=== PATIENT | female | born 1950 | race Caucasian/White ===

== ENCOUNTER 2021-05-29 09:42 | Outpatient (CLI) | payer MEDICARE, BC | END 2021-05-29 09:43 | disposition home or self-care (01) | LOC: CSHMAMMO 09:42 | PROVIDERS: ATTEND Family Medicine | DX: Z12.31 Encounter for screening mammogram for malignant neoplasm of breast (principal) | CPT/HCPCS: 77063; 77067 ==

== ENCOUNTER 2023-03-03 10:44 | Outpatient (CLI) | payer MEDICARE | END 2023-03-03 10:45 | disposition home or self-care (01) | LOC: CSHMAMMO 10:44 | PROVIDERS: ATTEND Obstetrics & Gynecology | DX: Z12.31 Encounter for screening mammogram for malignant neoplasm of breast (principal) | CPT/HCPCS: 77063; 77067 ==

== ENCOUNTER 2024-02-17 12:46 | Outpatient (CLI) | payer MEDICARE | END 2024-02-17 12:47 | disposition home or self-care (01) | LOC: CSHMAMMO 12:46 | PROVIDERS: ATTEND Family Medicine | DX: Z78.0 Asymptomatic menopausal state (principal) | CPT/HCPCS: 77080 ==

== ENCOUNTER 2024-03-08 10:39 | Outpatient (CLI) | payer MEDICARE | END 2024-03-08 10:40 | disposition home or self-care (01) | LOC: CSHMAMMO 10:39 | PROVIDERS: ATTEND Obstetrics & Gynecology | DX: Z12.31 Encounter for screening mammogram for malignant neoplasm of breast (principal) | CPT/HCPCS: 77063; 77067 ==